=== PATIENT | male | born 1960 | race Caucasian/White ===

== ENCOUNTER 2018-09-03 19:16 | Emergency (ER) | payer SELFPAY ==
[2018-09-03] MEDS ORDERED: MORPHINE SULFATE 10 MG/ML VIAL IVP ONE (19:26)
[2018-09-03] MEDS ORDERED: Diph,Pert(Acell),Tet Vac 0.5 ML SYR IM ONE (19:26)
[2018-09-03] MEDS ORDERED: CEFAZOLIN 2 Gram 2 GM/50 ML BAG IVPB ONE (19:26)
[2018-09-03] MEDS ORDERED: ONDANSETRON HCL IV 4 MG/2 ML VIAL IVP ONE (19:26)
[2018-09-03] MEDS ORDERED: 0.9 % SODIUM CHLORIDE 1000ML 1,000 ML IV SCH (19:30)
--- NOTE | 2018-09-03 19:32 | Emergency Department Record ---
History of Present Illness - General Chief complaint: Extremity Problem Stated complaint: LT THUMB LAC Time Seen by Provider: 09/03/18 19:25 Source: Patient Mode of Arrival: Ambulatory Limitations: No limitations - History of Present Illness Initial comments: 57 yo male presents to ED following thumb injury. 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 Patient reports that the patient's thumb was "sucked into the engine compartment". Patient denies other injury on examination, denies health problems at his baseline. Patient is unsure if his tetanus is UTD. MD Complaint: Extremity pain Onset/Timin -: Minutes(s) Location: Left History of Same: No -: Yes Arthralgia Radiation: Proximal Quality: Aching Consistency: Constant Improves with: Nothing Worsens with: Nothing Associated Symptoms: Denies other symptoms - Related Data Allergies Allergy/AdvReac Type Severity Reaction Status Date / Time No Known Drug Allergies Allergy Verified 09/03/18 19:28 Review of Systems Constitutional: Denies: Chills, Fever, Malaise, Night sweats Eyes: Denies: Eye discharge, Eye pain ENT: Denies: Congestion, Ear pain, Epistaxis Respiratory: Denies: Cough, Dyspnea Cardiovascular: Denies: Chest pain, Dyspnea on exertion Endocrine: Denies: Fatigue, Heat or cold intolerance Gastrointestinal: Denies: Abdominal pain, Nausea, Vomiting Genitourinary: Denies: Incontinence, Retention Musculoskeletal: Reports: Arthralgia. Denies: Back pain, Gout, Joint swelling Skin: Denies: Bruising, Change in color, Rash Neurological: Denies: Abnormal gait, Confusion, Headache, Seizure Psychiatric: Denies: Anxiety Hematological/Lymphatic: Denies: Anemia, Blood Clots Past Medical History - SOCIAL HISTORY Smoking Status: Former smoker - RESPIRATORY Hx Respiratory Disorders: No - CARDIOVASCULAR Hx Cardio Disorders: No - NEURO Hx Neuro Disorders: No - GI Hx GI Disorders: No - Hx Genitourinary Disorders: No - ENDOCRINE Hx Endocrine Disorders: No - MUSCULOSKELETAL Hx Musculoskeletal Disorders: Yes Hx Arthritis: Yes Comment:: history of cellulitis rt leg in november 2014 - PSYCH Hx Psych Problems: No - HEMATOLOGY/ONCOLOGY Hx Hematology/Oncology Disorders: No Physical Exam - General General Appearance: Alert, Oriented x3, Cooperative, Moderate distress Limitations: No limitations - Head Head exam: Atraumatic, Normocephalic, Normal inspection Head exam detail: negative: Abrasion, Contusion, Vásquez's sign, General tenderness, Hematoma, Laceration - Eye Eye exam: Normal appearance. negative: Conjunctival injection, Periorbital swelling, Periorbital tenderness, Scleral icterus - ENT Ear exam: negative: Auricular hematoma, Auricular trauma Nasal Exam: negative: Active bleeding, Discharge, Dried blood, Foreign body Mouth exam: negative: Drooling, Laceration, Muffled voice, Tongue elevation - Neck Neck exam: Normal inspection. negative: Meningismus, Tenderness - Respiratory Respiratory exam: Normal lung sounds bilaterally. negative: Rales, Respiratory distress, Rhonchi, Stridor - Cardiovascular Cardiovascular Exam: Regular rate, Normal rhythm, Normal heart sounds Peripheral Pulses: 3+: Dorsalis Pedis (R) - GI/Abdominal GI/Abdominal exam: Soft. negative: Rebound, Rigid, Tenderness - Rectal Rectal exam: Deferred - exam: Deferred - Extremities Extremities exam: Tenderness, Other (Complete amputation of the thumb from the proximal phalanx distally. Strong distal radial pulse is present.). negative: Calf tenderness, Pedal edema - Neurological Neurological exam: Alert, Normal gait, Oriented X3 - Psychiatric Psychiatric exam: Normal affect, Normal mood - Skin Skin exam: Normal color. negative: Abrasion Type of lesion: negative: abrasion Course Vital Signs 09/03/18 19:22 Temperature 97.7 F Pulse Rate [ 74 Pulse Ox Probe] Respiratory 20 Rate Blood Pressure 112/73 [Right Arm] Pulse Ox 95 - Reevaluation(s) Reevaluation #1: 09/03/18 19:30 Radial nerve block was performed, Kefzol and morphine/zofran ordered for analgesia. tetanus was ordered to be updated. Portable radiographs ordered. Reevaluation #2: 09/03/18 19:35 Portable radiographs were reviewed: Amputation of the left thumb involving the distal aspect of the proximal phalanx distally Initiating transfer to [facility] Reevaluation #3: 09/03/18 19:42 Case was discussed with Dr. Lane at [facility], will accept transfer at this time. Reevaluation #4: 09/03/18 20:02 EMS is present for transfer Left hand radiologist interpretation: Amputation of the left thumb at the distal aspect of the proximal phalanx Marked soft tissue loss with calcifications within the soft-tissues ? Fracture base of the second middle phalanx vs. positioning Procedures - Nerve Block Consent Obtained: Verbal consent Time Out Performed: Yes Local Anesthetic Used: Marcaine 0.25% Side: Left Nerve Blocks: Radial Procedure Successful: Yes Complications: None Patient Tolerated Procedure: Good Disposition Disposition: Transfer Clinical Impression: Amputation thumb Disposition: Acute Care Hospital Transfer Transfer To: [facility] Reason For Transfer: Hand surgery consultation Accepting Physician: Domingo Time Discussed w/Accepting Physician: 19:43 Condition: (2) Stable Forms: Patient Portal Access Time of Disposition: 19:43 Quality - Quality Measures Quality Measures: N/A - Blood Pressure Screening Does Patient Have Any of the Following: No Blood Pressure Classification: Normal BP Reading Systolic Measurement: 112 Diastolic Measurement: 73 Screening for High Blood Pressure: < Normal BP, F/U Not Required > [G8783]
[2018-09-03] MEDS ORDERED: HYDROMORPHONE HCL 2 MG/ML VIAL IVP ONE (20:02)
--- NOTE | 2018-09-05 09:57 | RADIOLOGY REPORT ---
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 TECHNIQUE: AP and lateral views of the left hand were obtained. Comparison: Three views of the left thumb dated 09/12/10. Encounter: Initial. FINDINGS: There are changes of acute amputation at the level of the distal aspect of the first proximal phalanx where the amputation margin is obliquely oriented. There is associated soft tissue deformity and small calcific densities scattered within the deformed soft tissues. There is questionable deformity of the base of the second middle phalanx though this is not well visualized on the lateral view. No other osseous evidence of fracture nor dislocation. Mild osteoarthritic changes of the radiocarpal joint and first carpal-metacarpal joint. IMPRESSION: 1. ACUTE AMPUTATION CHANGES OF THE THUMB AT THE LEVEL OF THE DISTAL ASPECT OF THE FIRST PROXIMAL PHALANX. PLEASE SEE ABOVE DISCUSSION. 2. ON THE AP VIEW THERE IS APPARENT DEFORMITY OF THE BASE OF THE SECOND MIDDLE PHALANX THOUGH THIS MAY JUST RELATE TO SUPERIMPOSITION OF SOFT TISSUES. JOB NUMBER: [id number] [facility]
== END 2018-09-03 20:05 | disposition short-term general hospital (02) ==
LOC: ER 19:16
DX: S68.512A Complete traumatic transphalangeal amputation of left thumb, initial encounter (principal); W30.89XA Contact with other specified agricultural machinery, initial encounter; Z87.891 Personal history of nicotine dependence
CPT/HCPCS: 64450; 90715; 96365; 96372; 96375; 99285; J2270; J2405; J7030